=== PATIENT | male | born 2000 | race Caucasian/White ===

== ENCOUNTER 2023-03-05 23:42 | Emergency (ER) | payer MEDICAID, SELFPAY ==
--- NOTE | ~2023-03-05 | XR_ITS ---
Portable chest x-ray Comparison: None Clinical History: Cough Findings: Lungs are clear, without focal consolidation or pleural effusion. Cardiomediastinal silho uette is unremarkable. Bones and soft tissues are unremarkable. Impression: Normal chest. Reviewed, dictated and finalized at location . STOCK FARMWORKER Impression: Normal chest.
--- NOTE | ~2023-03-05 | CT_ITS ---
Non-contrast CT scan of the Abdomen and Pelvis Clinical indication: Abdominal pain Technique: 2.5 mm axial scans were obtained through the abdomen and pelvis without intravenous or or al contrast. Dose reduction technique was used on this scan by utilizing automated exposure control a nd iterative reconstruction technique. The dose-length product (DLP) was 579.87 mGy-cm. Findings: Images through the lung bases reveal calcified right basilar granuloma. There is no evidence of renal or ureteral calculi. The kidneys and the ureters are nondilated. The liver, spleen, pancreas, gallbladder, and adrenals appear normal. There is no aortic aneurysm. There is no evidence of bowel obstruction. Images through the pelvis were performed. There is no evidence of ascites or lymphadenopathy. Urinary bladder unremarkable. No pelvic mass seen. Impression: No significant abnormality seen. Reviewed, dictated and finalized at [facility]. TICAL RESEARCHER Impression: No significant abnormality seen.
--- NOTE | 2023-03-05 23:46 | ECG_ITS ---
Measurements Intervals [place] Rate: 108 P: 61 OK: 153 QRS: 54 QRSD: 88 T: 52 QT: 299 QTc: 401 Interpretive Statements SINUS TACHYCARDIA ABNORMAL RHYTHM ECG NO PREVIOUS ECG AVAILABLE FOR COMPARISON Electronically Signed On 03-06-2023 13:19:29 SUPERVISOR BOTTLE MACHINES by Charlie Jones M.D.
[2023-03-05 23:47] VITALS: BP 143/59; PULSE 104; RESP 28; TEMP 36.9; O2SAT 98
[2023-03-06] VITALS (10 sets, daily range): BP systolic 119–131; BP diastolic 66–78; PULSE 85–97; RESP 10–17; O2SAT 95–98
[2023-03-06] MEDS: SODIUM CHLORIDE 0.9% IV 1,000 ML 999 ML IV CONT (03:27)
[2023-03-06] MEDS: KETOROLAC 30 MG/ML VIAL (*BKC) IV PUSH (03:27)
[2023-03-06] MEDS: PROCHLORPERAZINE EDISYLATE 10 MG/2 ML VIAL IV PUSH (03:28)
[2023-03-06 03:29] LABS: Basophils Absolute Auto 0.1 K/mm3 (0.0-0.1); Basophils Percent Auto 0.4 % (0.2-1.2); Eosinophils Absolute Auto 0.1 K/mm3 (0-0.3); Eosinophils Percent Auto 0.5 % (0-4.4); Hematocrit 45.7 % (42.0-52.0); Hemoglobin 14.9 g/dL (14.0-18.0); Immature Granulocyte Absolute 0.06 K/mm3 (0.00-0.031); Immature Granulocyte Percent A 0.4 % (0-0.5); Lymphocytes Absolute Auto 1.62 K/mm3 (0.9-3.2); Lymphocytes Percent Auto 11.8 % (18.3-44.2); Mean Corpuscular HGB Conc 32.6 g/dl (32-36); Mean Corpuscular Hemoglobin 29.6 pg (26-34); Mean Corpuscular Volume 90.7 fl (80-100); Mean Platelet Volume 10.2 fl (7.4-10.4); Monocytes Absolute Auto 1.2 K/mm3 (0.1-0.6); Monocytes Percent Auto 8.4 % (2.6-8.5); Neutrophils Absolute Auto 10.8 K/mm3 (1.3-6.7); Neutrophils Percent Auto 78.5 % (45.5-73.1); Platelet Count Result 308 k/mm3 (150-375); Red Blood Count 5.04 M/mm3 (4.6-6.20); Red Cell Distribution Width 13.9 % (11.5-14.5); White Blood Count 13.8 K/mm3 (4.5-10.0)
[2023-03-06 03:38] LABS: Appearance Urine Cloudy (Clear); Bacteria Urine None Seen /hpf; Bilirubin Urine Negative (Negative); Blood Urine Negative (Negative); Color Urine Yellow (Yellow); Glucose Urine UA Negative (Negative); Ketones Urine Negative (Negative); Leukocyte Esterase Ur Negative LEU/UL (Negative); Nitrate Urine Negative (Negative); Non Pathogenic Casts 0-2; Protein Urine Negative (Negative); RBC Urine 0-2 /hpf (0-2); Squamous Epithelial Cell Urine None seen /hpf (Few); WBC Urine 0-5 /hpf
[2023-03-06 03:41] LABS: Lactic Acid Reflex 1.2 mmol/L (0.7-2.0)
[2023-03-06 03:42] LABS: Add Urine Microscopic? YES
--- NOTE | 2023-03-06 03:46 | PC.NURSE ---
This RN attempted to have pt put vital monitor equipment back on. Pt refused and took vital equipment off.
[2023-03-06 03:52] LABS: Alanine Aminotransferase 19 U/L (6-50); Albumin Level 4.6 g/dL (3.5-5.1); Alkaline Phosphatase 66 U/L (38-126); Anion Gap 12 mmol/L (8-16); Aspartate Amino Transferase 25 U/L (17-59); Bilirubin,Total 0.4 mg/dL (0.2-1.3); Blood Urea Nitrogen 15 mg/dL (9-20); Calcium 9.6 mg/dL (8.4-10.2); Carbon Dioxide 26 mmol/L (22-30); Chloride 102 mmol/L (98-107); Estimated CRCL calculation 111 ml/min; Estimated Glomerular Filt Rate > 60; Glucose 105 mg/dL (65-110); Lipase 48 U/L (23-300); NT Pro B Type Natriuretic Pept 47 pg/mL (19.9-100); Potassium 4.3 mmol/L (3.4-5.0); Sodium 140 mmol/L (137-145); Troponin I < 0.012 ng/mL (0.000-0.034)
[2023-03-06 04:03] LABS: Procalcitonin < 0.0 ng/mL
[2023-03-06 04:06] LABS: Influenza A QL RT-PCR Negative (Negative); Influenza B QL RT-PCR Negative (Negative); RSV RNA, RT-PCR Negative (Negative); SARS-CoV-2 RNA PCR Negative (Negative)
--- NOTE | 2023-03-06 05:46 | ED.GENADULT ---
HPI - General Adult General Chief complaint: Unspecified Stated complaint: anxiety Time Seen by Provider: 03/06/23 02:06 History of Present Illness HPI narrative: patient is a 22-year-old gentleman presents emerged from with chief complaint of vomiting and diarrhea patient also having chills feelings as bodies nominal reports that his abdomen has been hurting as well. The patient reports symptoms are not improved by anything Related Data Allergies Allergy/AdvReac Type Severity Reaction Status Date / Time bamboo Allergy Hives Verified 03/06/23 02:32 ondansetron [From Zofran] Allergy Unknown Verified 03/06/23 02:31 Review of Systems Review of Systems: A 10 system review of systems was completed on the patient and is negative except for what is stated in the HPI. Nursing and ancillary documentation was reviewed. Exam Narrative: GENERAL: Well-appearing, well-nourished, and in no acute distress. HEAD: Normocephalic, atraumatic. EYES: PERRLA and EOMI. ENT: Nares clear, no rhinorrhea or epistaxis. Mucous membranes moist. NECK: Supple. CHEST: Clear to auscultation. No respiratory distress. HEART: Regular rate and rhythm. No murmur heard. Normal peripheral pulses. ABDOMEN: Soft, diffuse mild tenderness, nondistended, normal active bowel sounds. EXTREMITIES: Normal range of motion. No edema. SKIN: Warm, dry, no rash. NEURO: No focal deficits. Alert and oriented x3. PSYCH: Normal mood and affect. Course Vital Signs Vital signs: Vital Signs Temperature 36.9 C 03/05/23 23:47 Pulse Rate 104 H 03/05/23 23:47 Respiratory Rate 28 H 03/05/23 23:47 Blood Pressure 143/59 H 03/05/23 23:47 Pulse Oximetry 98 03/05/23 23:47 Temperature 36.9 C 03/05/23 23:47 Pulse Rate 85 03/06/23 02:38 Respiratory Rate 10 L 03/06/23 02:32 Blood Pressure 126/78 03/06/23 03:01 Pulse Oximetry 98 03/06/23 03:30 Oxygen Delivery Room Air 03/06/23 02:25 Medical Decision Making [facility] Narrative Medical decision making narrative: differential diagnosis includes intra-abdominal infection, pneumonia, influenza, RSV, COVID UTI laboratory studies reviewed with patient white count 13.8 electrolytes within normal limits troponin was negative BNP was negative lipase is normal procalcitonin is less than 0 0 urinalysis showed no evidence UTI COVID flu and RSV were negative. Chest x-ray showed no focal infiltrate EKG showed sinus tachycardia rate 108 CT scan of the abdomen pelvis was obtained this is currently still pending. The patient decided that they wanted to leave because the CT scan was taking too long to be read by Radiology. Vital Signs Vital Signs: Vital Signs Temperature 36.9 C 03/05/23 23:47 Pulse Rate 104 H 03/05/23 23:47 Respiratory Rate 28 H 03/05/23 23:47 Blood Pressure 143/59 H 03/05/23 23:47 Pulse Oximetry 98 03/05/23 23:47 Temperature 36.9 C 03/05/23 23:47 Pulse Rate 85 03/06/23 02:38 Respiratory Rate 10 L 03/06/23 02:32 Blood Pressure 126/78 03/06/23 03:01 Pulse Oximetry 98 03/06/23 03:30 Oxygen Delivery Room Air 03/06/23 02:25 Lab Data 03/06/23 03:23 03/06/23 03:23 Labs: Lab Results 03/06/23 03/06/23 Range/Units 03:22 03:23 WBC 13.8 H (4.5-10.0) K/mm3 RBC 5.04 (4.6-6.20) M/mm3 Hgb 14.9 (14.0-18.0) g/dL Hct 45.7 (42.0-52.0) % MCV 90.7 (80-100) fl MCH 29.6 (26-34) pg MCHC 32.6 (32-36) g/dl RDW 13.9 (11.5-14.5) % Plt Count 308 (150-375) k/mm3 MPV 10.2 (7.4-10.4) fl Immature Gran % (Auto) 0.4 (0-0.5) % Neut % (Auto) 78.5 H (45.5-73.1) % Lymph % (Auto) 11.8 L (18.3-44.2) % [place] % (Auto) 8.4 (2.6-8.5) % Eos % (Auto) 0.5 (0-4.4) % Baso % (Auto) 0.4 (0.2-1.2) % Lymph # (Auto) 1.62 (0.9-3.2) K/mm3 [place] # (Auto) 1.2 H (0.1-0.6) K/mm3 Eos # (Auto) 0.1 (0-0.3) K/mm3 Baso # (Auto) 0.1 (0.0-0.1) K/mm3 Abs Immat Gran (au
--- NOTE | 2023-03-06 05:47 | PC.NURSE ---
Addendum entered by Maru Schrader RN 03/06/23 05:51: This RN informed EDP about pt decision. Original Note: Pt used call light to ask this RN what pt was waiting on. Upon arrival pt stated what are we waiting, take this out of my arm . This RN explained that an IV was necessary while being a pt in the ER for benefit of receiving medications.Pt then stated, I want to go home, I do not want to wait for test results, can you take this thing out of my arm . This RN informed pt they would have to sign out against medical advice. Pt verbalized understanding and this RN notified provider of pt wanting to leave and sign out against medical advice.
== END 2023-03-06 06:16 | disposition left against medical advice (07) ==
PROVIDERS: Emergency Provider Emergency Medicine
DX: R11.10 Vomiting, unspecified (principal); R19.7 Diarrhea, unspecified; R10.9 Unspecified abdominal pain; Z20.822 Contact with and (suspected) exposure to COVID-19; R00.0 Tachycardia, unspecified
CPT/HCPCS: 36415; 71045; 74176; 80053; 81001; 83605; 83690; 83880; 84145; 84484; 85025; 87637; 93005; 96361; 96374; 96375; 99284; J0780; J1885; J7030

== ENCOUNTER 2023-03-19 09:43 | Emergency (ER) | payer MEDICAID, SELFPAY ==
--- NOTE | ~2023-03-19 | XR_ITS ---
EXAMINATION: XR chest 1V portable INDICATION: Left-sided chest pain TECHNIQUE: Portable AP chest at 1153 hours COMPARISON: 03/06/2023 FINDINGS: The lungs are free of acute opacities. No pleural effusion or pneumothorax. The cardiomedia stinal silhouette is normal. IMPRESSION: 1. No acute cardiopulmonary abnormality. Reviewed, dictated and finalized at location L. ILIZATION TECHNICIAN
--- NOTE | ~2023-03-19 | XR_ITS ---
EXAMINATION: XR elbow LT min 3V DATE: 03/19/2023 11:30 INDICATION: Distal left humerus pain after lifting weights. TECHNIQUE: 4 views of left elbow were obtained. COMPARISON: None. FINDINGS: Bone alignment is normal. No fracture. Joint spaces are normal. No elbow joint effusion. IMPRESSION: 1. Normal left elbow. Reviewed, dictated and finalized at location A. FORM SOFTWARE ENGINEER IMPRESSION: 1. Normal left elbow.
[2023-03-19 10:01] VITALS: BP 129/72; PULSE 73; RESP 16; TEMP 36.7; O2SAT 99
[2023-03-19 11:42] LABS: Glucose Point of Care 94 mg/dl (65-105)
[2023-03-19 11:51] LABS: Appearance Urine Cloudy (Clear); Bacteria Urine None Seen /hpf; Bilirubin Urine Negative (Negative); Blood Urine Negative (Negative); Color Urine Yellow (Yellow); Glucose Urine UA Negative (Negative); Ketones Urine Negative (Negative); Leukocyte Esterase Ur Negative LEU/UL (Negative); Nitrate Urine Negative (Negative); Non Pathogenic Casts 0-2; Protein Urine Trace mg/dL (Negative); RBC Urine 0-2 /hpf (0-2); Specific Grav Ur 1.029 (1.001-1.035); Squamous Epithelial Cell Urine None seen /hpf (Few); WBC Urine 0-5 /hpf; pH Urine 6.5 (5.0-9.0)
[2023-03-19 11:52] LABS: Add Urine Microscopic? YES
--- NOTE | 2023-03-19 11:56 | ED.GENADULT ---
HPI - General Adult General Chief complaint: Extremity Injury, Upper Stated complaint: Left arm pain Time Seen by Provider: 03/19/23 11:19 History of Present Illness HPI narrative: 22-year-old male presenting to the emergency department for evaluation of left elbow and left shoulder pain. 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 patient states he did do some weightlifting and tried to see if that would help with the shoulder pain and only made the shoulder and elbow pain worse. Related Data Allergies Allergy/AdvReac Type Severity Reaction Status Date / Time bamboo Allergy Hives Verified 03/19/23 11:33 ondansetron [From Zofran] Allergy Unknown Verified 03/19/23 11:33 Review of Systems Review of Systems: All systems reviewed & are unremarkable except as noted in HPI and below Exam Narrative: APPEARANCE: Well appearing, no pain, no distress, well-nourished. HEAD: normocephalic, atraumatic. EYES: PERRLA/EOMI, conjunctivae clear. NOSE: Normal no drainage EARS:TMS clear with good light reflex. THROAT: Pharynx clear, no exudate. NECK: Supple. No adenopathy, no masses. RESPIRATORY: Airway patent, respirations nonlabored. Clear to auscultation bilaterally, no rales, rhonchi, wheezing. CARDIOVASCULAR: Regular rate and rhythm without murmurs rubs or gallops. ABDOMINAL: Soft, nontender, nondistended, normal bowel sounds MUSCULOSKELETAL: tenderness to left shoulder with palpation with no deformity or abnormality. Tenderness of the left elbow as well with normal range of motion NEURO: Alert. Cranial nerves II through XII intact. grossly intact SKIN: Warm, dry. Normal Color Course Course Emergency Course: 22 old male presenting ED for evaluation of left arm pain. X-rays were negative for acute fracture or dislocation. Patient was encouraged to rest the elbow and shoulder and to stop weightlifting. Patient was encouraged to have close follow-up with his primary care physician for additional outpatient workup. All questions concerns were addressed patient was well-appearing at time of discharge. Vital Signs Vital signs: Vital Signs Temperature 98.1 F 03/19/23 10:01 Pulse Rate 73 03/19/23 10:01 Respiratory Rate 16 03/19/23 10:01 Blood Pressure 129/72 03/19/23 10:01 Pulse Oximetry 99 03/19/23 10:01 Oxygen Delivery Room Air 03/19/23 10:01 Temperature 98.1 F 03/19/23 10:01 Pulse Rate 73 03/19/23 10:01 Respiratory Rate 16 03/19/23 10:01 Blood Pressure 129/72 03/19/23 10:01 Pulse Oximetry 99 03/19/23 10:01 Oxygen Delivery Room Air 03/19/23 10:01 Medical Decision Making Vital Signs Vital Signs: Vital Signs Temperature 98.1 F 03/19/23 10:01 Pulse Rate 73 03/19/23 10:01 Respiratory Rate 16 03/19/23 10:01 Blood Pressure 129/72 03/19/23 10:01 Pulse Oximetry 99 03/19/23 10:01 Oxygen Delivery Room Air 03/19/23 10:01 Temperature 98.1 F 03/19/23 10:01 Pulse Rate 73 03/19/23 10:01 Respiratory Rate 16 03/19/23 10:01 Blood Pressure 129/72 03/19/23 10:01 Pulse Oximetry 99 03/19/23 10:01 Oxygen Delivery Room Air 03/19/23 10:01 Lab Data Lab results reviewed: Yes I reviewed the patient's lab results. Labs: Lab Results 03/19/23 03/19/23 Range/Units 11:39 11:43 POC Capillary Glucose 94 (65-105) mg/dl Urine Color Yellow (Yellow) Urine Appearance Cloudy H (Clear) Urine pH 6.5 (5.0-9.0) Ur Specific [place] 1.029 (1.001-1.035) Urine Protein Trace (Negative) mg/dL Urine Glucose (UA) Negative (Negative) mg/dL Urine Ketones Negative (Negative) mg/dL Ur Blood (Man) Negative (Negative) Urine Nitrate Negative (Negative) Urine Bilirubin Negative (Negative) Urine Urobilinogen 1.0 (<2.0) mg/dL Leukocyte Esterase Rfl Negative (Negative) JUNIOR/UL Urine RBC 0-2 (0-2) /hpf Urine WBC 0-5 /hpf Ur Squamous Epith Cells Non
== END 2023-03-19 12:30 | disposition home or self-care (01) ==
PROVIDERS: Emergency Provider Emergency Medicine
DX: S46.912A Strain of unspecified muscle, fascia and tendon at shoulder and upper arm level, left arm, initial encounter (principal); X50.0XXA Overexertion from strenuous movement or load, initial encounter
CPT/HCPCS: 71045; 73080; 81001; 82948; 99284